=== PATIENT | male | born 1975 | race Caucasian/White ===

== ENCOUNTER 2016-07-29 09:42 | Emergency (ER) | payer OTHER ==
[~2016-07-29] VITALS: Ht 190.5 cm; Wt 108.9 kg
[2016-07-29 09:53] VITALS: BP 148/95
[2016-07-29] MEDS ORDERED: LISI-373 PO (09:53)
[2016-07-29] MEDS ORDERED: CITA10TA8 PO (09:53)
[2016-07-29] MEDS ORDERED: CLIN-44 PO (10:44)
[2016-07-29] MEDS ORDERED: EFIN4SOL TP (10:44)
[2016-07-29] MEDS ORDERED: HYDR-971 PO (10:44)
--- NOTE | 2016-07-29 10:44 | PHYS DOC ---
Past Medical History Past Medical History: Hypertension Past Surgical History: Other Additional Past Surgical Histo: left knee surgery Alcohol Use: Heavy Additional Information: daily whiskey drinker Drug Use: None Adult General Chief Complaint Chief Complaint: TOE PROBLEM HPI HPI Patient is a 40 year old male with history of hypertension who presents today with infected right fifth toe. Patient states since yesterday the toe has been drained swollen and very tender to touch. Patient denies any injuries. Review of Systems Review of Systems Constitutional: Denies fever or chills [] Eyes: Denies change in visual acuity, redness, or eye pain [] Musculoskeletal: Denies back pain or joint pain [] Integument: infected right fifth toe Neurologic: Denies headache, focal weakness or sensory changes [] Endocrine: Denies polyuria or polydipsia [] Allergies Allergies Allergies Coded Allergies Type Severity Reaction Last Updated Verified Penicillins Allergy Intermediate rash 07/29/16 Yes Physical Exam Physical Exam Constitutional: Well developed, well nourished, no acute distress, non-toxic appearance. [] HENT: Normocephalic, atraumatic, bilateral external ears normal, oropharynx moist, no oral exudates, nose normal. [] Skin: Right fifth toe is swollen with diffuse erythema surrounding the toenail. The toenail has onychomycosis. There is no drainage around the toenail. The toe is very painful and tender to touch. There is no fluctuance to the toe. Back: No tenderness, no CVA tenderness. [] Extremities: No tenderness, no cyanosis, no clubbing, ROM intact, no edema. [] Neurologic: Alert and oriented X 3, normal motor function, normal sensory function, no focal deficits noted. [] Psychologic: Affect normal, judgement normal, mood normal. [] Current Patient Data Vital Signs Vital Signs Date Time Temp Pulse Resp B/P Pulse Ox O2 Delivery O2 Flow Rate FiO2 07/29/16 09:53 97.7 94 20 100 Room Air 97.7 EKG EKG [] Radiology/Procedures Radiology/Procedures [] Course & Med Decision Making Course & Med Decision Making Pertinent Labs and Imaging studies reviewed. (See chart for details) Patient is in the ED with an infected right fifth toe, he also has onychomycosis to the right fifth toenail. He requested a prescription onychomycosis application medicine, he states he did pills but he prefers to use a prescription application medicine this time. Jublia prescription was given to patient. Discharged with clindamycin for the bacterial infection. His tetanus is up-to-date. Follow-up with his PCP in 1-2 weeks. Provided return precautions and discharged in stable condition. Kennedi Disclaimer Kennedi Disclaimer This electronic medical record was generated, in whole or in part, using a voice recognition dictation system. Departure Departure Impression: Primary Impression: Isha onychomycosis Additional Impression: Toe infection Disposition: 01 HOME, SELF-CARE Condition: STABLE Referrals: NO PCP (PCP) Follow-up with your doctor in 1-2 weeks. Patient Instructions: Skin Infections Additional Instructions: You have a fungal infection on the right fifth toenail called onychomycosis. We will put you on Jublia clear to clear this infection, you will have to use this medication for 48 weeks. We also put you on antibiotics to clear bacterial infection on the right fifth toe. Complete your antibiotics. Follow-up with your doctor in the next 1-2 weeks. Scripts Hydrocodone/Apap 5-325 (Rochelle 5-325 Tablet)1 Each Tablet1-2 Tab PO Q4-6HRS #14 TAB Prov:HUY COLUNGA APRN 07/29/16 Clindamycin Hcl 150 Mg Capsule3 Cap PO TID #90 CAP Prov:HUY COLUNGA APRN 07/29/16 Efinaconazole (Jublia)4 Ml [place].w.[email or web address] Ml TP DAILY #1 BECKY use for 48 weeks Prov:HUY COLUNGA APRN 07/29/16 Problem Qualifiers HUY COLUNGA APRN Jul 29, 2016 10:44
== END 2016-07-29 10:47 | disposition home or self-care (01) ==
LOC: ER 09:42
DX: B35.1 Tinea unguium (principal); L08.9 Local infection of the skin and subcutaneous tissue, unspecified; I10 Essential (primary) hypertension; Z88.0 Allergy status to penicillin
CPT/HCPCS: 99283